=== PATIENT | female | born 1960 | race African-American/Black ===

== ENCOUNTER → 2016-09-24 | Outpatient (CLI) | payer MEDICARE, MEDICAID ==
[~2016-09-24] MED LIST: IBUPROFEN600 MG ORAL; JANUVIA50 MG ORAL; LANTUS SOL100 UNIT/1 SUBQ; METFORMIN HCL1000 M1 ORAL; OXYCONTIN30 MG ORAL; SIMVASTATIN10 MG ORAL; XANAX2 MG ORAL
--- NOTE | 2016-09-25 10:50 | Diagnostic Imaging Report ---
Indication: Neck mass Technique: The neck was imaged in a 1.5 Viry magnet. Sequences obtained include multiplanar T1 and T2 fast spin-echo, STIR, post gadolinium T1 with fat saturation. Comparison: None Findings: Small marker is placed in the area of palpable concern bilaterally. No mass identified within the neck in particular attention to the areas of clinical concern. No abnormal fluid collections, abscess identified. The airway is clear. The epiglottis and aryepiglottic folds appear normal. The visualized part of the nasopharynx, oropharynx and hypopharynx appear unremarkable. The glands are unremarkable. Skull base is unremarkable. Some T2 hyperintense mucosal thickening demonstrated within the paranasal sinuses. Impression: No mass identified. Negative MRI of the neck. Mild sinusitis
--- NOTE | 2016-09-26 10:29 | Diagnostic Imaging Report ---
Indication: BK PAIN chronic low back pain x3 months Technique: Sagittal T1 fast echo, sagittal and axial T2 FRFSE sagittal STIR, axial T1, pre-and postcontrast axial, postcontrast sagittal T1 fat-saturated images Comparison: None Findings: The conus medullaris demonstrates a low termination at the mid L2 level. The vertebral body heights are preserved. The disc spaces are preserved. Vertebral body marrow signal is preserved. There is disc desiccation at L4-5 and L5-S1. At L4-5, there is circumferential annular bulge which results in mild to moderate narrowing of the spinal canal to 8 mm minimum AP dimension. The neural foramina are preserved. At L5-S1, there is circumferential annular bulge which does not result in any significant spinal canal narrowing. The neural foramina are preserved bilaterally. The remaining disc levels, no significant disc bulge or protrusion, spinal stenosis, or neural foraminal narrowing. At the level of L4-5, there is mild enhancement of the paraspinous fat and musculature. There is a small effusion in the facets. There is probable bilateral pars interarticularis defects of L5. Impression: No acute bony trauma Bilateral L4-5 facet joint effusions and enhancement of the surrounding paraspinous soft tissues. This most likely is due to facet arthropathy, nonspecific as regards etiology but possibly related to the suspected L5 pars interarticularis defects Degenerative changes, as detailed level by level basis above
== END | disposition home or self-care (01) ==
LOC: RAD 10:43
DX: M54.16 Radiculopathy, lumbar region (principal); M54.2 Cervicalgia
CPT/HCPCS: 70543; 72158; A9585